=== PATIENT | female | born 1975 | race African-American/Black ===

== ENCOUNTER 2017-07-24 12:28 | Inpatient (IN) | payer OTHER ==
[~2017-07-24] VITALS: Ht 167.6 cm; Wt 94.3 kg
[~2017-07-24 12:28] MED LIST: LABETALOL HCL300 MG PO; LISINOPRIL-HCT1 EACH PO; MOTRIN800 MG PO; NORETHINDRONE AC5 MG PO; NORVASC2.5 MG PO; NORVASC5 MG PO; PRENATAL TABLE1 EAC3 PO; TRAMADOL HCL50 MG PO
[2017-07-24 13:13] LABS: HEMATOCRIT 43.3 % (36.0-46.0); HEMOGLOBIN 14.2 G/DL (11.9-15.5); MCH 26.6 PG (29.0-34.0); MCHC 32.8 G/DL (30.0-36.0); MCV 81.1 FL (83-99); PLATELET COUNT 244 K/uL (156-360); RBC DIS.WIDTH-CV 12.7 % (11.8-14.6); RED BLOOD COUNT 5.34 M/uL (3.80-5.20); WHITE BLOOD COUNT 4.4 K/uL (4.1-10.2)
[2017-07-24 13:22] LABS: CHLORIDE 105 mEq/L (99-109); SODIUM 142 mEq/L (136-147)
[2017-07-24 13:24] LABS: GLUCOSE 80 mg/dL (70-99)
[2017-07-24 13:28] LABS: CREATININE 1.8 mg/dL (0.6-1.3); GFR ESTIMATE (CALCULATED) 40 mL/min/
[2017-07-24 13:29] LABS: UREA NITROGEN (BUN) 23 mg/dL (9-23)
[2017-07-24 13:35] LABS: TROP-I INTERPRETATION NEGATIVE; TROPONIN-I 0.02 ng/mL (0.0-0.30)
[2017-07-24 14:35] LABS: QUANTITATIVE HCG < 4.0 MIU/ML
[2017-07-24] MEDS ORDERED: PRINIVIL10 MG PO (15:28)
[2017-07-24] MEDS ORDERED: LIPITOR10 MG PO (15:28)
[2017-07-24 16:58] LABS: APPEARANCE CLEAR ((CLEAR)); BILIRUBIN NEGATIVE; BLOOD NEGATIVE; COLOR STRAW ((YELLOW)); GLUCOSE (STRIP) NEGATIVE; KETONES NEGATIVE; LEUKOCYTES NEGATIVE; NITRITE NEGATIVE; PROTEIN (STRIP) 100; UROBILINOGEN 0.2 MG/DL (0.2-1.0)
[2017-07-24 17:06] LABS: BACTERIA NONE SEEN /HPF; EPITHELIAL CELLS RARE /HPF; MUCUS TRACE /LPF; RED BLOOD CELLS 0-5 /HPF (0-5); WHITE BLOOD CELLS 0-5 /HPF (0-5)
[2017-07-24 17:58] LABS: TROP-I INTERPRETATION NEGATIVE; TROPONIN-I 0.01 ng/mL (0.0-0.30)
[2017-07-24 18:52] LABS: D-DIMER ELISA < 150.00 ng/mLDDU (<230)
[2017-07-24 23:46] VITALS: BP 187/108
[2017-07-25 00:40] LABS: ALBUMIN 3.9 g/dL (3.2-4.8)
[2017-07-25 00:43] LABS: TOTAL PROTEIN 7.4 g/dL (6.4-8.3)
[2017-07-25 00:45] LABS: TOTAL BILIRUBIN 0.6 mg/dL (0.0-1.0)
[2017-07-25 00:46] LABS: ALKALINE PHOSPHATASE 67 IU/L (3-129)
[2017-07-25 00:48] LABS: AST (GOT) 26 IU/L (2-34)
[2017-07-25 00:49] LABS: ALT (GPT) 27 IU/L (3-49); DIRECT BILIRUBIN 0.2 mg/dL (0.0-0.3); URIC ACID 8.4 mg/dL (3.1-9.2)
[2017-07-25 00:50] LABS: LIPASE 45 U/L (1.0-51.0); TROP-I INTERPRETATION NEGATIVE; TROPONIN-I 0.04 ng/mL (0.0-0.30)
[2017-07-25 03:30] VITALS: BP 131/80
[2017-07-25 06:41] LABS: HEMATOCRIT 39.8 % (36.0-46.0); HEMOGLOBIN 12.7 G/DL (11.9-15.5); MCH 26.3 PG (29.0-34.0); MCHC 31.9 G/DL (30.0-36.0); MCV 82.4 FL (83-99); PLATELET COUNT 223 K/uL (156-360); RBC DIS.WIDTH-CV 12.9 % (11.8-14.6); RBC DIS.WIDTH-SD 38.5 % (39-53); RED BLOOD COUNT 4.83 M/uL (3.80-5.20); WHITE BLOOD COUNT 3.6 K/uL (4.1-10.2)
[2017-07-25 07:07] LABS: CHLORIDE 102 MEQ/L (99-109); CREATININE 1.6 MG/DL (0.6-1.3); GFR ESTIMATE (CALCULATED) 46 mL/min/; GLUCOSE 89 mg/dL (70-99); POTASSIUM 3.7 MEQ/L (3.7-5.4); SODIUM 138 MEQ/L (136-147); TROP-I INTERPRETATION NEGATIVE; TROPONIN-I 0.01 ng/mL (0.0-0.30); UREA NITROGEN (BUN) 27 mg/dL (9-23)
[2017-07-25 07:30] VITALS: BP 150/101
[2017-07-25 11:44] VITALS: BP 199/106
[2017-07-25 14:05] VITALS: BP 150/94
[2017-07-25 17:44] VITALS: BP 165/90
[2017-07-25 19:40] VITALS: BP 173/91
[2017-07-26 00:39] VITALS: BP 178/98
[2017-07-26 03:54] VITALS: BP 165/92
[2017-07-26 08:35] VITALS: BP 122/90
[2017-07-26 09:16] LABS: CHLORIDE 107 mEq/L (99-109); POTASSIUM 4.3 mEq/L (3.7-5.4); SODIUM 140 mEq/L (136-147)
[2017-07-26 09:18] LABS: GLUCOSE 90 mg/dL (70-99)
[2017-07-26 09:22] LABS: CREATININE 1.6 mg/dL (0.6-1.3); GFR ESTIMATE (CALCULATED) 46 mL/min/
[2017-07-26 09:23] LABS: UREA NITROGEN (BUN) 23 mg/dL (9-23)
[2017-07-26] MEDS ORDERED: LIPITOR10 MG PO (10:13)
[2017-07-26] MEDS ORDERED: CLONIDINE HCL0.1 MG PO (10:13)
[2017-07-26] MEDS ORDERED: LISINOPRIL20 MG PO (10:13)
[2017-07-26] MEDS ORDERED: ASPIR-LOW81 MG PO (10:13)
[2017-07-26] MEDS ORDERED: LABETALOL HCL300 MG PO (10:13)
[2017-07-26 11:39] LABS: C4 COMPLEMENT 32 MG/DL (10-40)
[2017-07-26 11:52] LABS: HEPATITIS B SURFACE ANTIGEN Nonreactive; HEPATITIS C ANTIBODY Nonreactive
[2017-07-26 11:53] LABS: HEPATITIS B SURFACE ANTIBODY Nonreactive
== END 2017-07-26 13:42 | disposition home or self-care (01) | DRG 305 ==
LOC: EME 12:28 → 5SOUTH 19:59 → EDOF 19:59 → ENRESERV 20:03 → 5SOUTH 23:29
PROVIDERS: Hospitalist; Internal Medicine; Nurse Practitioner Family
DX: I16.1 Hypertensive emergency (principal); I67.4 Hypertensive encephalopathy; N17.9 Acute kidney failure, unspecified; E66.9 Obesity, unspecified; N28.1 Cyst of kidney, acquired; I51.7 Cardiomegaly; E78.5 Hyperlipidemia, unspecified; R80.9 Proteinuria, unspecified; I16.0 Hypertensive urgency; N18.3 Chronic kidney disease, stage 3 (moderate); I12.9 Hypertensive chronic kidney disease with stage 1 through stage 4 chronic kidney disease, or unspecified chronic kidney disease; Z91.14 Patient's other noncompliance with medication regimen; Z87.891 Personal history of nicotine dependence; Z79.82 Long term (current) use of aspirin; Z68.33 Body mass index [BMI] 33.0-33.9, adult; Z82.49 Family history of ischemic heart disease and other diseases of the circulatory system; Z83.3 Family history of diabetes mellitus
CPT/HCPCS: 70450; 71046; 76770; 80048; 80076; 81003; 82088 90; 82436; 82570; 83690; 84133; 84156; 84244 90; 84300; 84484; 84550; 84702; 85027; 85379; 86160; 86334; 86335; 86706; 86803; 87340; 93005; 93306; 93975; 99281; 99285; J1885